=== PATIENT | female | born 1955 | race Caucasian/White ===

== ENCOUNTER → 2019-04-09 16:24 | Outpatient (BNVA) | payer MEDICARE, SELFPAY | PROVIDERS: Family Provider Nurse Practitioner; PCP Nurse Practitioner; Visit Provider Nurse Practitioner | DX: E11.65 Type 2 diabetes mellitus with hyperglycemia (principal); J44.9 Chronic obstructive pulmonary disease, unspecified; F41.8 Other specified anxiety disorders; E11.40 Type 2 diabetes mellitus with diabetic neuropathy, unspecified; K59.01 Slow transit constipation; I10 Essential (primary) hypertension; N39.46 Mixed incontinence | CPT/HCPCS: 80053; 80061; 81003; 83036 ==

== ENCOUNTER → 2019-08-16 14:28 | Outpatient (BNVA) | payer MEDICARE, SELFPAY | PROVIDERS: Family Provider Nurse Practitioner; PCP Nurse Practitioner; Visit Provider Nurse Practitioner | DX: J44.9 Chronic obstructive pulmonary disease, unspecified (principal); E11.65 Type 2 diabetes mellitus with hyperglycemia; E55.9 Vitamin D deficiency, unspecified; F41.8 Other specified anxiety disorders; M19.90 Unspecified osteoarthritis, unspecified site; K21.9 Gastro-esophageal reflux disease without esophagitis; E11.40 Type 2 diabetes mellitus with diabetic neuropathy, unspecified; I10 Essential (primary) hypertension; N39.46 Mixed incontinence | CPT/HCPCS: 80053; 80061; 81000; 82306; 82607; 83036; 83735; 84443; 85025 ==

== ENCOUNTER → 2019-12-13 13:43 | Outpatient (BNVA) | payer MEDICARE, SELFPAY | PROVIDERS: Family Provider Nurse Practitioner; PCP Nurse Practitioner; Visit Provider Nurse Practitioner | DX: Z11.59 Encounter for screening for other viral diseases (principal); G62.9 Polyneuropathy, unspecified; R11.2 Nausea with vomiting, unspecified | CPT/HCPCS: 87635 ==

== ENCOUNTER → 2019-12-26 09:24 | Outpatient (BNVA) | payer MEDICARE, SELFPAY | PROVIDERS: Family Provider Nurse Practitioner; PCP Nurse Practitioner; Visit Provider Orthopaedic Surgery | DX: M25.511 Pain in right shoulder (principal) | CPT/HCPCS: 73030 ==

== ENCOUNTER → 2020-01-11 08:30 | Outpatient (BNVA) | payer MEDICARE, SELFPAY | PROVIDERS: Family Provider Nurse Practitioner; PCP Nurse Practitioner; Visit Provider Nurse Practitioner | DX: E78.2 Mixed hyperlipidemia (principal); E55.9 Vitamin D deficiency, unspecified; E11.65 Type 2 diabetes mellitus with hyperglycemia; I10 Essential (primary) hypertension | CPT/HCPCS: 80053; 80061; 82306; 83036; 84443; 85025 ==

== ENCOUNTER 2020-07-21 09:21 | Outpatient (CLI) | payer MEDICARE, SELFPAY ==
--- NOTE | 2020-07-21 09:45 | CT_ITS ---
WS: [id number] CT HEAD NONCONTRAST HISTORY: R51.9 - Headache, unspecified TECHNIQUE: Contiguous axial imaging performed through the brain in 2.5 mm imaging. Bone and soft tiss ue windows. All CT scans at [facility] use at least one of these dose optimization techniq ues: automated exposure control; mA and/or kV adjustment per patient size (includes targeted exams wh ere dose is matched to clinical indication); or iterative reconstruction. DLP: 992.04 mGycm COMPARISON: 05/08/2013 No acute intracranial hemorrhage, midline shift or mass effect. There are mild chronic microvascular ischemic changes surround the ventricles. No atrophy or prior infarcts or herniation. Ventricles: Normal size with no hydrocephalus. Paranasal sinuses: As visualized are clear. Mastoid air cells: Well pneumatized. Calvarium and scalp: Hyperostosis frontalis interna. Focal stable scar within the posterior LEFT black etal scalp. CT/CT head wo con* [id number] IMPRESSION: Very mild chronic microvascular ischemic changes. No acute interval change sinc e 05/08/2013.
== END 2020-07-21 09:22 | disposition home or self-care (01) ==
PROVIDERS: PCP Nurse Practitioner; Visit Provider Nurse Practitioner
DX: R51.9 Headache, unspecified (principal); E11.65 Type 2 diabetes mellitus with hyperglycemia
CPT/HCPCS: 70450; 80053; 80061; 82043; 82607; 83036; 84443

== ENCOUNTER → 2021-01-01 10:08 | Outpatient (BNVA) | payer MEDICARE, SELFPAY | PROVIDERS: PCP Nurse Practitioner; Visit Provider Nurse Practitioner | DX: E55.9 Vitamin D deficiency, unspecified (principal); E11.65 Type 2 diabetes mellitus with hyperglycemia; I10 Essential (primary) hypertension; E78.2 Mixed hyperlipidemia; Z79.899 Other long term (current) drug therapy | CPT/HCPCS: 80053; 80061; 82306; 83036; 84443; 85025 ==

== ENCOUNTER → 2021-06-29 09:06 | Outpatient (BNVA) | payer MEDICARE, SELFPAY | PROVIDERS: PCP Nurse Practitioner; Visit Provider Nurse Practitioner | DX: E11.65 Type 2 diabetes mellitus with hyperglycemia (principal); R10.9 Unspecified abdominal pain | CPT/HCPCS: 80053; 83036; 85025 ==

== ENCOUNTER → 2021-12-28 11:32 | Outpatient (BNVA) | payer MEDICARE, SELFPAY | PROVIDERS: PCP Nurse Practitioner; Visit Provider Nurse Practitioner | DX: J43.8 Other emphysema (principal); J30.89 Other allergic rhinitis; F41.8 Other specified anxiety disorders; L29.9 Pruritus, unspecified; E11.22 Type 2 diabetes mellitus with diabetic chronic kidney disease; N18.2 Chronic kidney disease, stage 2 (mild); K21.9 Gastro-esophageal reflux disease without esophagitis; E78.2 Mixed hyperlipidemia; I10 Essential (primary) hypertension; N39.46 Mixed incontinence; E11.65 Type 2 diabetes mellitus with hyperglycemia; R41.3 Other amnesia; Z12.39 Encounter for other screening for malignant neoplasm of breast; R07.9 Chest pain, unspecified; Z23 Encounter for immunization; E55.9 Vitamin D deficiency, unspecified | CPT/HCPCS: 80053; 80061; 81000; 82306; 82607; 83036; 84443; 85025 ==

== ENCOUNTER 2022-01-18 | Outpatient (CLI) | payer MEDICARE, SELFPAY | END 2022-01-18 23:00 | disposition home or self-care (01) | LOC: RAD 01-22 06:33 | PROVIDERS: PCP Nurse Practitioner; Visit Provider Internal Medicine Cardiovascular Disease | DX: R07.9 Chest pain, unspecified (principal); I12.9 Hypertensive chronic kidney disease with stage 1 through stage 4 chronic kidney disease, or unspecified chronic kidney disease; N18.2 Chronic kidney disease, stage 2 (mild); E11.22 Type 2 diabetes mellitus with diabetic chronic kidney disease; F17.210 Nicotine dependence, cigarettes, uncomplicated; Z79.84 Long term (current) use of oral hypoglycemic drugs; E78.2 Mixed hyperlipidemia; G47.33 Obstructive sleep apnea (adult) (pediatric); J43.9 Emphysema, unspecified | CPT/HCPCS: 99204 ==

== ENCOUNTER 2022-02-04 13:44 | Outpatient (CLI) | payer MEDICARE, SELFPAY ==
--- NOTE | 2022-02-04 13:50 | MM_ITS ---
WS: [id number] VIEWS: MLO and CC views both breasts. 3D digital tomosynthesis is also included in this exam. Comparison made with prior exam of 10/03/2007, 11/22/2008. 10/21/2016.. Findings: There was no sign of mass, architectural distortion or suspicious calcification in either breast. Sta ble appearing small nodules in both breasts. Scattered fibroglandular densities. MM/[place] [id number] Impression: BI-RADS: 2-Benign FOLLOW-UP: 1 Year Follow-up This mammogram was also analyzed by the Computer Aided Detection System R2 Imag e Optomechanical Engineer.
== END 2022-02-04 13:45 | disposition home or self-care (01) ==
LOC: RAD 13:45
PROVIDERS: PCP Nurse Practitioner; Visit Provider Nurse Practitioner
DX: Z12.31 Encounter for screening mammogram for malignant neoplasm of breast (principal)
CPT/HCPCS: 77063; 77067

== ENCOUNTER 2022-03-25 06:39 | Outpatient (CLI) | payer MEDICARE, SELFPAY ==
--- NOTE | 2022-03-25 | ECG_ITS ---
[facility] Test Date: 2022-03-25 Pat Name: Kat Perez Department: Room: Gender: Female Technology Coordinator: Ingrid Menchaca : 1955 Requested By: Mary Romero Order Number: [id number] Kirill MD: Mary Romero M.D. Interpretive Statements NAME OF STUDY: LEXISCAN SESTAMIBI STRESS TEST INDICATION: Chest Pain PROCEDURE: At the baseline, the blood pressure was 125/70 mm Hg with a heart rate of 72 bpm. The electrocardiogram showed sinus rhythm, possible anteroseptal [place]. ??? The Lexiscan was infused over a period of 20 seconds. A total of 0.4 milligrams of Lexiscan was infused. The stress phase was continued for a total of 5 minutes. Heart rate at the end of the stress phase was 91 bpm with a blood pressure of 126/82 mm Hg. The EKG at the peak infusion revealed no significant ST-T wave changes. ??? Sestamibi was injected 20 seconds after the Lexiscan infusion. ??? Blood pressure at the end of the recovery phase was 122/94 mm Hg with a heart rate of 91 beats per minute. ??? CONCLUSION: 1. No significant EKG changes with the LexiScan infusion. 2. No LexiScan induced chest pain or cardiac arrhythmia. 3. Normal blood pressure and heart rate response. 4. Sestamibi/sestamibi perfusion scan pending; see separate report. Electronically Signed On 04-11-2022 9:31:10 HOTEL SECURITY OFFICER by Mary Romero M.D. [email or web address]
[2022-03-25 06:48] VITALS: BMI 46.7
--- NOTE | 2022-03-25 06:49 | NMCV_ITS ---
NM zuleika perf SPECT r/s* [id number] Kat Perez Age: 66 Gender: F : 1955 Exam Date: 03/25/2022 07:46 Ordering Phys: Mary Romero MD ([email or web address]) Technologist: GARFIELD Sousa Exam Location: [facility] Indications: CHEST PAIN STRESS TEST Please see separate stress test report in [facility] for full findings IMAGE PROTOCOL Rest/Stress 1 Lexiscan Day Radiopharmaceutical Dose (mCi) Administration Site Administered by Rest: Tc-99m 10.4 IV GARFIELD Pollack Sestamibi Stress:Tc-99m 32.6 IV GARFIELD Sousa Sestamiirving Rest: 25-Mar-2022 60 Discovery 630 Stress: 25-Mar-2022 30 Discovery 630 0.4mg Lexiscan. Supine position only as patient was unable to lay prone. SPECT RESULTS Technical Quality: Good Raw Data Analysis: Image Corrections: No attenuation or motion correction applied Summed Stress Score: 5 Summed Rest Score: 3 Summed Difference Score: 3 PERFUSION FINDINGS Small sized perfusion abnormality of mild severity of mid inferior, mid inferolateral and apical lateral sy on rest images with reversibility in mid to apical inferolateral wall on supine stress images FUNCTIONAL RESULTS (calculated via Gated SPECT) Stress Image LV EF (%): 86 Stress EDV (mL):102 TID: 1.02 Stress ESV (mL):14 FUNCTIONAL FINDINGS: The left ventricle is normal in size. Transient Ischemia Dilatation of 1. There is hyperdynamic left ventricular global systolic function, LVEF=86%. There is hyperdynamic left ventricular wall thickening. IMPRESSIONS 1.Small sized partially reversible perfusion abnormality of mild severity of mid inferolateral, apical anterior and apical lateral sy. 2. This may represent old myocardial infarction in circumflex artery territory with minimal alex-infarct ischemia or attenuation artifact in absence of prone imaging. 3. Overall left ventricular systolic function is normal without regional wall motion abnormalities, LVEF=86%. 4. EKG portion of the study will be reported separately. Mary Romero MD (Electronically Signed) Final Date: 27 March 2022 11:53 S
[2022-03-25] MEDS: regadenoson 0.4 Mg/5 ml Syringe IVP (08:24)
[2022-03-25 08:32] VITALS: BP 122/94; PULSE 92
== END 2022-03-25 06:40 | disposition home or self-care (01) ==
PROVIDERS: PCP Nurse Practitioner; Visit Provider Internal Medicine Cardiovascular Disease
DX: R07.9 Chest pain, unspecified (principal); R06.02 Shortness of breath
CPT/HCPCS: 36415; 78452; 93017; 96374; A9500; J2785

== ENCOUNTER → 2022-06-24 11:44 | Outpatient (BNVA) | payer MEDICARE, SELFPAY | PROVIDERS: PCP Nurse Practitioner; Visit Provider Nurse Practitioner | DX: J43.8 Other emphysema (principal); L29.9 Pruritus, unspecified; F41.8 Other specified anxiety disorders; E11.22 Type 2 diabetes mellitus with diabetic chronic kidney disease; N18.2 Chronic kidney disease, stage 2 (mild); R41.3 Other amnesia; E78.2 Mixed hyperlipidemia; K21.9 Gastro-esophageal reflux disease without esophagitis; I10 Essential (primary) hypertension; J30.89 Other allergic rhinitis; E11.65 Type 2 diabetes mellitus with hyperglycemia; E55.9 Vitamin D deficiency, unspecified | CPT/HCPCS: 80053; 80061; 81000; 82043; 82306; 83036 ==

== ENCOUNTER → 2022-07-19 12:53 | Outpatient (BNVA) | payer MEDICARE, SELFPAY | PROVIDERS: PCP Nurse Practitioner; Visit Provider Nurse Practitioner Family | DX: R07.9 Chest pain, unspecified (principal); I12.9 Hypertensive chronic kidney disease with stage 1 through stage 4 chronic kidney disease, or unspecified chronic kidney disease; E11.22 Type 2 diabetes mellitus with diabetic chronic kidney disease; F17.210 Nicotine dependence, cigarettes, uncomplicated; N18.2 Chronic kidney disease, stage 2 (mild) | CPT/HCPCS: 99214 ==

== ENCOUNTER → 2022-12-28 09:32 | Outpatient (BNVA) | payer MEDICARE, SELFPAY | PROVIDERS: PCP Nurse Practitioner; Visit Provider Nurse Practitioner | DX: E11.22 Type 2 diabetes mellitus with diabetic chronic kidney disease (principal); N18.2 Chronic kidney disease, stage 2 (mild); E11.65 Type 2 diabetes mellitus with hyperglycemia | CPT/HCPCS: 80053; 80061; 81000; 83036 ==

== ENCOUNTER → 2023-02-08 11:05 | Outpatient (BNVA) | payer MEDICARE, SELFPAY | PROVIDERS: PCP Nurse Practitioner; Visit Provider Internal Medicine Cardiovascular Disease | DX: R07.9 Chest pain, unspecified (principal); I12.9 Hypertensive chronic kidney disease with stage 1 through stage 4 chronic kidney disease, or unspecified chronic kidney disease; E11.22 Type 2 diabetes mellitus with diabetic chronic kidney disease; E11.65 Type 2 diabetes mellitus with hyperglycemia; N18.2 Chronic kidney disease, stage 2 (mild); Z79.84 Long term (current) use of oral hypoglycemic drugs; E78.2 Mixed hyperlipidemia; G47.33 Obstructive sleep apnea (adult) (pediatric); Z99.89 Dependence on other enabling machines and devices; J43.8 Other emphysema; F17.210 Nicotine dependence, cigarettes, uncomplicated | CPT/HCPCS: 99214 ==

== ENCOUNTER → 2023-02-15 09:36 | Outpatient (BNVA) | payer MEDICARE, SELFPAY | PROVIDERS: PCP Nurse Practitioner; Referring Provider Nurse Practitioner; Visit Provider Psychiatry & Neurology Neurology | DX: G25.0 Essential tremor (principal) | CPT/HCPCS: 99203 ==

== ENCOUNTER 2023-02-20 17:23 | Emergency (ER) | payer MEDICARE, SELFPAY ==
[2023-02-20 17:28] VITALS: BP 94/51; PULSE 82; RESP 15; TEMP 36.8; O2SAT 94; BMI 46.1
--- NOTE | 2023-02-20 17:52 | ED_ITS ---
HPI - Seizure 2 General: Chief Complaint: Seizure Stated Complaint: SEIZURE Time Seen by Provider: 02/20/23 17:33 Source: patient Limitations: no limitations History of Present Illness: HPI Narrative: This patient came to the emergency department because of concerns about continuous seizures since yesterday evening. Is a history of seizure disorder and was recently started on lamotrigine by neurology. She states she is taken approximately 3 doses. She states that they are unpredictable and have no pattern. She states that they start with shaking in her upper arms she states that she is fatigued after having some any's episodes over the past day or so. She denies any fevers or chills trauma chest pain shortness of breath or other constitutional complaints. There is no history of loss of bowel or bladder control or injury or associated symptoms during these episodes. She has no history of street drug use, alcohol use etc. No recent trauma no recent illness. MD complaint: possible seizure Trauma: No Seizure History: No Associated symptoms: Deny chest pain, chills, confusion, fever(s) or syncope Review of Systems 2 Const: Denies: fever(s) or chills Eyes: Denies: change in vision ENMT: Denies: throat pain, odynophagia, nasal discharge or nasal congestion Card: Denies: chest pain, palpitations, irregular heart rhythm, syncope or pre-syncope Resp: Denies: dyspnea, productive cough or non-productive cough GI: Denies: abdominal pain, nausea, vomiting or diarrhea : Denies: flank pain or difficulty voiding Musc: Denies: neck pain, back pain, extremity pain or extremity swelling Skin/Breast: Denies: rash Neuro: Reports: seizure-like activity; Denies: headache(s), numbness in extremities, weakness in extremities, confusion, Slurred speech present or difficulty communicating thoughts Psych: Reports: anxiety [place]/Lymph: Denies: easy bruising or easy bleeding PFSH ED 2 PFSH: Medical History AKI on CPAP Environmental and seasonal allergies 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 Neuropathy Mixed hyperlipidemia Arthritis Anxiety with depression CPAP (continuous positive airway pressure) dependence COPD (chronic obstructive pulmonary disease) Gastric reflux Mixed stress and urge incontinence Controlled type 2 diabetes mellitus with hyperglycemia, without long-term current use of insulin Chronic constipation Benign hypertension Morbid obesity Surgical History S/P tonsillectomy History of partial surgical removal of colon 1997 Diverticulitis History of hip surgery total right History of hysterectomy 1997 without BSO History of knee replacement total Bilateral History of tubal ligation Family History Father Cancer lung and brain Heart disease Myocardial infarction All fathers side Mother Diabetes Hypertension Stroke Cancer Kidney/Lung CA Social History Smoking and tobacco/nicotine status: current every day tobacco/nicotine user cigarettes Packs smoked per day: 1 Years cigarettes smoked: 32 Second hand smoke exposure: No Alcohol intake: unknown Substance/Drug Use: never Adopted: No Caregiver/support person: No Lives independently: Yes Household members: spouse Marital status: service: No Current occupational status: unemployed and disabled Pets and animals: Yes Do you think of yourself as: Straight/Heterosexual Current gender identity: Female Physical Exam 2 Narrative: EXAM NARRATIVE: During intake evaluation the patient made good eye contact and answers questions in a goal-directed and fluent fashion. She would intermittently have epic episodes where it was observed that she would have shaking of both upper extremities in a rhythmic fashion. This seemed to vary in intensity and seemed to completely dissipate when she was engaged in active conversation. Const: COMMON NORMALS: no acute distress and patient oriented x3 GENERAL APPEARANCE: cooperative and comfortable NUTRITIONAL APPEARANCE: obese O RIENTATION/CONSCIOUSNESS: Yes awake, Yes oriented to person and Yes oriented to place HENMT: COMMON NORMALS: normocephalic, atraumatic, Normal nasal mucous membranes and turbinates present, moist oral mucous membranes and oropharynx normal (No evidence of intraoral injury, tongue biting etc.) HEAD & SCALP: n ormocephalic and atraumatic NOSE: Normal nasal mucous membranes and turbinates present Eye: COMMON NORMALS: Equal, round and reactive pupils present, EOMs intact bilaterally, conjunctivae normal and no scleral icterus CONJUNCTIVA: Yes conjunctivae normal PUPIL: Yes Equal, round and reactive pupils present Neck/C-Spine: COMMON NORMALS: full ROM, no lymphadenopathy, supple, no JVD and Thyroid normal THYROID: Thyroid normal Chest: COMMONS NORMALS: normal inspection of the chest Resp: COMMON NORMALS: normal respiratory effort, No retractions, No use of accessory muscles and clear to auscultation bilaterally AUSCULTATION: clear to auscultation bilaterally Cardio: COMMON NORMALS: no JVD, regular rate, regular rhythm, No murmurs present (Cardio) and Peripheral pulses 2+ throughout RATE: regular rate R HYTHM: regular rhythm PERIPHERAL PULSES: Peripheral pulses 2+ throughout GI: COMMON NORMALS: Normal to inspection, nondistended, normoactive bowel sounds present and Soft to palpation PALPATION: Yes Soft to palpation : COMMON NORMALS: Yes no CVA tenderness BLADDER/KIDNEY EXAM: Yes no CVA tenderness Back/Pelvis: COMMON NORMALS: no CVA tenderness, thoracic and lumbar spine normal to inspection, no thoracic nor lumbar tenderness and thoraco-lumbar ROM normal Extremity: COMMON NORMALS: normal to inspection, full ROM, capillary refill normal, no calf tenderness and no pedal edema Neuro: COMMON NORMALS: patient oriented x3, moves all extremities, no focal motor deficits and no sensory deficits noted SENSORIUM/ORIENTATION: Yes oriented to person and Yes oriented to place CRANIAL NERVES: Yes CN normal except as noted COORDINATION/BALANCE: aawvyt-hc-fodx test normal and uofi-ka-hvow test normal COORDINATION: zpdodp-to-nktj test normal and iutx-fv-lqau test normal Psych: COMMON NORMALS: mental status grossly normal OTHER: During the interview the patient had an appropriate affect and seemed to have indifference to her episodes of shaking. Skin: COMMON NORMALS: no rashes or lesions noted, no wounds and turgor normal GENERAL SKIN EXAM: no rashes or lesions noted and turgor normal Course 2 Vital Signs: Vital signs: Vital Signs Temperature 98.3 F 02/20/23 17:28 Pulse Rate 82 02/20/23 17:28 Respiratory Rate 15 02/20/23 17:28 Blood Pressure 94/51 02/20/23 17:28 Pulse Oximetry 94 02/20/23 17:28 MDM - Seizure MDM Narrative Medical decision making narrative: This patient was numerous chronic comorbid medical problems presented to the emergency department because she had increasing frequency of her episodes of upper extremity shaking over the past day or so. She is unaware of any inciting event. She is recently been evaluated by neurology and carries a diagnosis of benign essential tremor and has been started on lamotrigine to help control her symptoms. She did not give a history that suggested that anxiety provoked her symptoms however she is had multiple injuries in her charts regarding anxiety symptoms. She has not just taken approximately 3 doses of her lamotrigine since being started on that medication. There is no other history of stimulants, self-injury, generalized tonic-clonic activity with loss of bowel or bladder continence, loss of conscious etc. Her clinical exam revealed what appeared to be intermittent and somewhat controllable rhythmic shaking of her upper extremities not continuous and seem to fluctuate depending upon her engagement. There is no involvement of her lower extremities. Her mentation and affect were normal and in fact she displayed rather indifference to her shaking. No other focal findings on her clinical or neurologic examination. Screening laboratories were obtained to ensure there was no electrolyte abnormalities or other potential etiologies within the realm of simple screening laboratories. She was given a single dose of Ativan and reevaluate after period of time. Her symptoms seem to be well-controlled and certainly at this time there is no evidence that this current condition portends a serious condition. It suggest possible psychogenic nonepileptic seizures but certainly could be anxiety provoked tremor as well. She does not have any evidence that suggested an ongoing emergency medical condition and it was discussed with both she and her family that she should continue the course with neurology and continue her medication buildup of her lamotrigine levels. All questions were answered and return precautions were discussed. Lab Data Attestation: I reviewed the patient's lab results. 02/20/23 17:59 02/20/23 17:59 Labs: Laboratory Results WBC 11.46 10^3/uL (3.29-11.43) H 02/20/23 17:59 RBC 4.32 10^6/uL (3.85-5.65) 02/20/23 17:59 Hgb 12.10 g/dL (11.27-16.99) 02/20/23 17:59 Hct 40.0 % (36-47) 02/20/23 17:59 MCV 92.6 fl (85-98) 02/20/23 17:59 MCH 28.0 pg (27-33) 02/20/23 17:59 MCHC 30.3 g/dL (30-55) 02/20/23 17:59 RDW 14.8 % (12.1-15.1) 02/20/23 17:59 Plt Count 206 10^3/cmm (157-399) 02/20/23 17:59 MPV 9.3 fL (7.4-10.4) 02/20/23 17:59 Neut % (Auto) 65.9 % 02/20/23 17:59 Lymph % (Auto) 26.2 % 02/20/23 17:59 [place] % (Auto) 5.8 % 02/20/23 17:59 Eos % (Auto) 1.5 % 02/20/23 17:59 Baso % (Auto) 0.3 % 02/20/23 17:59 Neut # (Auto) 7.56 10^3/uL (1.8-7.7) 02/20/23 17:59 Lymph # (Auto) 3.0 10^3/uL (0.8-4.8) 02/20/23 17:59 [place] # (Auto) 0.7 10^3/uL (0.2-0.9) 02/20/23 17:59 Eos # (Auto) 0.2 10^3/uL (0.0-0.8) 02/20/23 17:59 Baso # (Auto) 0.0 10^3/uL (0.0-0.1) 02/20/23 17:59 Nucleated RBC % (auto) 0 % 02/20/23 17:59 Nucleated RBCs # 0.0 /100WBC 02/20/23 17:59 Sodium 141 mmol/L (136-145) 02/20/23 17:59 Potassium 3.9 mmol/L (3.5-5.1) 02/20/23 17:59 Chloride 105 mmol/L (98-107) 02/20/23 17:59 Carbon Dioxide 23 mmol/L (22-29) 02/20/23 17:59 Anion Gap 16.9 (5-19) 02/20/23 17:59 BUN 12 mg/dL (8-23) 02/20/23 17:59 Creatinine 0.9 mg/dL (0.5-0.9) 02/20/23 17:59 GFR Calculation 62.1 mL/min (90-130) L 02/20/23 17:59 Glucose 84 mg/dL (65-115) 02/20/23 17:59 Calculated Osmolality 291 mOsm/kg (285-295) 02/20/23 17:59 Calcium 9.2 mg/dL (8.5-10.5) 02/20/23 17:59 Magnesium 2.0 mg/dL (1.7-2.3) 02/20/23 17:59 No radiology studies performed this visit Discharge Plan Discharge Patient Disposition: Home Clinical Impression: Psychogenic nonepileptic seizure Condition: Stable Prescriptions: No Action calcium carbonate [Calcium 600] 600 mg calcium (1,500 mg) tablet 600 mg PO QDAY coconut oil 1,000 mg capsule PO lactulose 20 gram/30 mL solution 20 gm PO QID PRN (Reason: constipation) Qty: 3000 5RF garlic 1,000 mg capsule 1,000 mg PO DAILY promethazine 25 mg tablet 25 mg PO Q6H PRN (Reason: nausea and vomiting) Qty: 20 0RF nitroglycerin [Nitrostat] 0.4 mg tablet, sublingual 0.4 mg sublingual Q5M PRN (Reason: chest pain) Qty: 25 0RF Rx Instructions: do not exceed 3 doses per episode triamcinolone acetonide 0.1 % ointment 1 applic topical BID PRN Excedrin Migraine 250-250-65 mg tablet 1 tab PO Q6H PRN albuterol sulfate [ProAir HFA] 90 mcg/actuation HFA aerosol inhaler 2 puff INHALATION QID PRN (Reason: shortness of breath or wheezing) Qty: 18 5RF bupropion HCl 150 mg tablet sustained-release 12 hr 150 mg PO Q12H Qty: 60 5RF cetirizine [Zyrtec] 10 mg tablet 10 mg PO DAILY Qty: 30 5RF Farxiga 10 mg tablet 10 mg PO QAM Qty: 30 5RF donepezil [Aricept] 5 mg tablet 5 mg PO DAILY Qty: 30 5RF famotidine 40 mg tablet 40 mg PO BID Qty: 60 5RF fenofibrate nanocrystallized [Tricor] 145 mg tablet 145 mg PO DAILY Qty: 30 5RF fluoxetine [Prozac] 20 mg capsule 20 mg PO DAILY Qty: 30 5RF fluticasone propion-salmeterol [Advair Diskus] 250-50 mcg/dose blister with device 1 inh INHALATION BID Qty: 60 5RF losartan 25 mg tablet 25 mg PO DAILY Qty: 90 1RF metoprolol succinate 50 mg tablet extended release 24 hr 50 mg PO QDAY Qty: 30 5RF montelukast [Singulair] 10 mg tablet 10 mg PO DAILY Qty: 30 5RF oxybutynin chloride 10 mg tablet extended release 24hr 10 mg PO QDAY Qty: 30 5RF lamotrigine 25 mg tablet 25 mg PO DAILY 14 Days Qty: 90 5RF Rx Instructions: take one in am one in pm for a week then 2 in am and 2 in pm thereafter tizanidine [Zanaflex] 4 mg tablet 4 mg PO BID PRN (Reason: muscle spasticity) Qty: 60 0RF acarbose 25 mg tablet 25 mg PO TID Qty: 90 2RF Rx Instructions: take before food aspirin 81 mg tablet,delayed release (DR/EC) See Rx Instructions .ROUTE .COMPLEX Qty: 90 3RF Dose Instruction: TAKE ONE TABLET BY MOUTH DAILY Rx Instructions: TAKE ONE TABLET BY MOUTH DAILY atorvastatin 20 mg tablet See Rx Instructions .ROUTE .COMPLEX Qty: 90 3RF Dose Instruction: TAKE ONE TABLET BY MOUTH DAILY Rx Instructions: TAKE ONE TABLET BY MOUTH DAILY Discharge Orders: Discharge ED (Routine); Ordered 02/20/23 Ordered By: Miguel Arriaza Referrals: Julius Lovelace, PLANNING TECHNICIAN-C [Primary Care Provider] - Discharge Diet: Usual diet Discharge Activity: Increase activity as tolerated Patient Instructions: Opioid Safety, Pain Management Activity Restrictions/Additional Instructions: Continue taking all your medications including your new antiseizure medication as prescribed. Make sure that you get at least 8 hours of sleep at night. Avoid excess stimulants such as caffeine, energy drinks, fvqf-kef-ddwvdgb cough and cold medicines etc. If you have any new or worsening symptoms you are welcome to return to the emergency department anytime for reevaluation. Coding Level of Care Code ED Turbogenerator Operator for Naomi Collins
[2023-02-20] MEDS: LORazepam 2 mg/mL INJ 1 mL 1 MG IVP (17:54)
[2023-02-20 18:11] LABS: Basophils % 0.3 %; Eosinophils # 0.2 10^3/uL (0.0-0.8); Eosinophils % 1.5 %; Lymphocytes % 26.2 %; Mean Corpuscular HGB Conc 30.3 g/dL (30-55); Mean Corpuscular Volume 92.6 fl (85-98); Mean Platelet Volume 9.3 fL (7.4-10.4); Monocytes # 0.7 10^3/uL (0.2-0.9); Monocytes % 5.8 %; Neutrophils # 7.56 10^3/uL (1.8-7.7); Neutrophils % 65.9 %; Nucleated Red Blood Cells % 0 %; Platelet Count 206 10^3/cmm (157-399); Red Blood Count 4.32 10^6/uL (3.85-5.65); Red Cell Distribution Width 14.8 % (12.1-15.1); White Blood Count 11.46 10^3/uL (3.29-11.43)
[2023-02-20 18:26] LABS: Anion Gap 16.9 (5-19); Blood Urea Nitrogen 12 mg/dL (8-23); Calcium 9.2 mg/dL (8.5-10.5); Carbon Dioxide 23 mmol/L (22-29); Chloride 105 mmol/L (98-107); Glomerular Filtration Rate 62.1 mL/min (90-130); Glucose 84 mg/dL (65-115); Osmolality Calculated 291 mOsm/kg (285-295); Potassium 3.9 mmol/L (3.5-5.1); Sodium 141 mmol/L (136-145)
[2023-02-20 19:55] VITALS: BP 111/49; PULSE 63; RESP 17; O2SAT 99
== END 2023-02-20 19:48 | disposition home or self-care (01) ==
PROVIDERS: Emergency Provider Emergency Medicine; PCP Nurse Practitioner
DX: G40.89 Other seizures (principal); Z79.82 Long term (current) use of aspirin; F17.210 Nicotine dependence, cigarettes, uncomplicated; I12.9 Hypertensive chronic kidney disease with stage 1 through stage 4 chronic kidney disease, or unspecified chronic kidney disease; E11.22 Type 2 diabetes mellitus with diabetic chronic kidney disease; N18.2 Chronic kidney disease, stage 2 (mild); E11.40 Type 2 diabetes mellitus with diabetic neuropathy, unspecified; E78.2 Mixed hyperlipidemia; J44.9 Chronic obstructive pulmonary disease, unspecified
CPT/HCPCS: 80048; 83735; 85025; 96374; 99284; J2060

== ENCOUNTER → 2023-06-01 14:36 | Outpatient (BNVA) | payer MEDICARE, SELFPAY | PROVIDERS: PCP Nurse Practitioner; Visit Provider Psychiatry & Neurology Neurology | DX: G25.0 Essential tremor (principal); R56.9 Unspecified convulsions; G25.3 Myoclonus; M54.2 Cervicalgia | CPT/HCPCS: 99212 ==

== ENCOUNTER 2023-06-27 09:07 | Outpatient (CLI) | payer MEDICARE, SELFPAY ==
--- NOTE | 2023-06-27 09:11 | CT_ITS ---
WS: [id number] CT HEAD NONCONTRAST HISTORY: R56.9 - Unspecified convulsions TECHNIQUE: Contiguous axial imaging performed through the brain in 2.5 mm imaging. Bone and soft tiss ue windows. Sagittal and coronal reformats reviewed. All CT scans at [facility] use at least one of these dose optimization techniques: automated exposure control; mA and/or kV adjustment per pa tient size (includes targeted exams where dose is matched to clinical indication); or iterative recon struction. DLP: 1150.38 mGy.cm COMPARISON: 07/21/2020 No acute intracranial hemorrhage, midline shift or mass effect. Mild atrophy and mild small vessel ischemic disease. Similar to the study of 07/21/2020. No mass effect or new infarct. Ventricles: Normal size with no hydrocephalus. No inferior displacement of the cerebellar tonsils. Paranasal sinuses: As visualized are clear. Mastoid air cells: Well pneumatized. Calvarium and scalp: Skull is intact with no soft tissue edema or swelling. IMPRESSION: 1. No acute intracranial hemorrhage or edema. 2. Mild atrophy and mild small vessel ischemic changes. Similar to 07/21/2020.
--- NOTE | 2023-06-27 09:11 | CT_ITS ---
WS: [id number] CT CERVICAL SPINE HISTORY: R56.9 - Unspecified convulsions TECHNIQUE: Contiguous 2.0 mm axial imaging performed through the entire cervical spine. Sagittal and coronal reformats also performed. All CT scans at [facility] use at least one of these dose o ptimization techniques: automated exposure control; mA and/or kV adjustment per patient size (include s targeted exams where dose is matched to clinical indication); or iterative reconstruction. DLP: 463.47 mGy.cm COMPARISON: 05/11/2017 Straightening and slight reversal of the normal lordosis centered at C5-6. Mild osteophytic ridging. Very slight anterolisthesis of C2. C4 anterolisthesis by 2.3 mm. Disc spaces are narrowed. Most signi ficant degenerative change at C5-6 and C6-7 with osteophytic ridging. Facet joints remain aligned. No fracture. Lateral masses of C1 and C2 are aligned. The odontoid is intact Hypertrophic degenerative changes surrounding the odontoid process. C2-C3: RIGHT facet arthritis. Mild central and bilateral foraminal stenosis predominantly due to oste ophytes. C3-C4: Osteophytic ridging and a central disc protrusion. Mild central and bilateral foraminal stenos is. C4-C5: Osteophytic ridging and marked facet joint arthritis, RIGHT greater than LEFT. Moderate centra l and LEFT foraminal stenosis. Severe RIGHT foraminal stenosis. C5-C6: Osteophytic ridging and facet joint arthritis. Moderate central and bilateral foraminal stenos is. C6-C7: Osteophytic ridging encroaching upon the ventral thecal sac. Moderate central and bilateral fo raminal stenosis. C7-T1: No significant stenosis. Paravertebral soft tissues are normal. IMPRESSION: 1. Mild progression of degenerative spondylitic changes throughout the cervical spine since 8. Central foraminal stenoses due to combination of vertebral body osteophytosis and facet arthritis. 2. C4-5: Moderate central LEFT foraminal stenosis with severe RIGHT foraminal stenosis. 3. C5-6 and C6-7: Moderate central and bilateral foraminal stenosis. 4. C2-3 and C3-4: Mild central and bilateral foraminal stenosis.
== END 2023-06-27 09:08 | disposition home or self-care (01) ==
LOC: RAD 09:08
PROVIDERS: PCP Nurse Practitioner; Visit Provider Psychiatry & Neurology Neurology
DX: R56.9 Unspecified convulsions (principal); G31.9 Degenerative disease of nervous system, unspecified; M48.02 Spinal stenosis, cervical region
CPT/HCPCS: 70450; 72125; 80053; 80061; 81000; 82607; 83036

== ENCOUNTER → 2023-06-30 09:44 | Outpatient (BNVA) | payer MEDICARE, SELFPAY | PROVIDERS: PCP Nurse Practitioner; Visit Provider Psychiatry & Neurology Neurology | DX: R56.9 Unspecified convulsions (principal); G25.3 Myoclonus; F44.5 Conversion disorder with seizures or convulsions | CPT/HCPCS: 95813 ==

== ENCOUNTER → 2023-07-12 15:13 | Outpatient (BNVA) | payer MEDICARE, SELFPAY | PROVIDERS: PCP Nurse Practitioner; Visit Provider Orthopaedic Surgery | DX: M54.9 Dorsalgia, unspecified (principal); M48.062 Spinal stenosis, lumbar region with neurogenic claudication | CPT/HCPCS: 36415; 72110; 80053; 85025; 99204 ==

== ENCOUNTER → 2023-07-14 10:38 | Outpatient (BNVA) | payer MEDICARE, SELFPAY | PROVIDERS: PCP Nurse Practitioner; Visit Provider Orthopaedic Surgery | DX: M54.9 Dorsalgia, unspecified (principal) | CPT/HCPCS: 81000 ==

== ENCOUNTER → 2023-07-19 09:09 | Outpatient (BNVA) | payer MEDICARE, SELFPAY | PROVIDERS: PCP Nurse Practitioner; Visit Provider Family Medicine | DX: Z01.810 Encounter for preprocedural cardiovascular examination (principal) | CPT/HCPCS: 93005 ==

== ENCOUNTER 2023-07-22 08:12 | Day surgery (SDC) | payer MEDICARE, SELFPAY ==
[2023-07-22] VITALS (11 sets, daily range): BP systolic 103–159; BP diastolic 58–86; PULSE 59–73; RESP 13–25; TEMP 36.1–36.5; O2SAT 92–100; BMI 45.8
[2023-07-22] MEDS: sodium chloride 0.9% 1,000 ML 30 ML IV (08:58)
--- NOTE | 2023-07-22 09:47 | ANES.PREANE2 ---
Pre-Anesthetic Assessment Height/Weight: Height 1.63 m Weight 121.109 kg Temp Pulse Resp BP Pulse Ox O2 Del Method 97.0 F L 59 L 20 H 159/86 93 Room Air 07/22/23 08:29 07/22/23 08:29 07/22/23 08:29 07/22/23 08:29 07/22/23 08:29 07/22/23 08:29 Preop Diagnosis: Nonworking neurostimulator Operation Date: 07/22/23 08:30 Proposed Procedures p Spinal Cord Battery/Stimulator Removal of Stimulator Paddle and Generator(Not Applicable) - Jamel Inman DO Last intake: Intake Last Liquid Date 07/21/23 Last Liquid Time 23:50 Last Solid Date 07/21/23 Last Solid Time 21:30 Social Tobacco and No alcohol Exam alert, oriented x 3, clear to auscultation bilaterally and regular rate & rhythm Airway Submandibular: within normal limits Cervical ROM: within normal limits Mallampati: Class I Pulmonary Chronic Obstructive Pulmonary Disease and Sleep Apnea CV/HEM Hypertension GI Gastroesophageal Reflux Disease Musc/el Lower Back Pain and Osteoarthritis/DJD Anesthetic Plan ASA status: 3 Anesthesia: General Medications/Allergies Home Medications Medication Instructions Recorded Confirmed Last Taken Type calcium carbonate (Calcium 600) 600 mg PO QDAY 04/09/19 07/21/23 07/20/23 16:00 History coconut oil 1,000 mg capsule 1,000 mg PO DAILY 04/09/19 07/21/23 07/20/23 16:00 History lactulose 20 gram/30 mL oral 20 gm (30 mL) PO QID PRN 04/09/19 07/21/23 Unknown Rx solution constipation #3,000 mL nitroglycerin 0.4 mg sublingual 0.4 mg sublingual Q5M PRN chest 12/28/21 07/21/23 Unknown Rx tablet (Nitrostat) pain #25 tabs ekdaxit-rmvoxjkchplrk-stsbyrqb 250 1 tab PO Q6H PRN MIGRAINES 01/18/22 07/21/23 Unknown History mg-250 mg-65 mg tablet (Excedrin Migraine) garlic 1,000 mg capsule 1,000 mg PO DAILY 01/18/22 07/21/23 07/20/23 16:00 History triamcinolone acetonide 0.1 % 1 applic topical BID PRN Rash 01/18/22 07/21/23 Unknown History topical ointment albuterol sulfate 90 mcg/actuation 2 puff inhalation QID PRN 06/02/23 07/21/23 Unknown Rx aerosol inhaler (ProAir HFA) shortness of breath or wheezing #18 grams bupropion HCl 150 mg tablet,12 hr 150 mg PO Q12H #60 tabs 06/02/23 07/21/23 07/21/23 10:00 Rx sustained-release cetirizine 10 mg tablet (Zyrtec) 10 mg PO DAILY #30 tabs 06/02/23 07/21/23 07/21/23 10:00 Rx dapagliflozin propanediol 10 mg 10 mg PO QAM #30 tabs 06/02/23 07/21/23 07/21/23 10:00 Rx tablet (Farxiga) donepezil 5 mg tablet (Aricept) 5 mg PO DAILY #30 tabs 06/02/23 07/21/23 07/21/23 10:00 Rx famotidine 40 mg tablet 40 mg PO BID #60 tabs 06/02/23 07/21/23 07/21/23 10:00 Rx fenofibrate nanocrystallized 145 145 mg PO DAILY #30 tabs 06/02/23 07/21/23 07/21/23 10:00 Rx mg tablet (Tricor) fluoxetine 20 mg capsule (Prozac) 20 mg PO BID #60 caps 06/02/23 07/21/23 07/21/23 10:00 Rx fluticasone 250 mcg-salmeterol 50 1 inh inhalation BID #60 ea 06/02/23 07/21/23 Unknown Rx mcg/dose blistr powdr for inhalation (Advair Diskus) losartan 25 mg tablet 25 mg PO DAILY #90 tabs 06/02/23 07/21/23 07/21/23 10:00 Rx metoprolol succinate 50 mg 50 mg PO QDAY #30 tabs 06/02/23 07/21/23 07/21/23 10:00 Rx tablet,extended release 24 hr montelukast 10 mg tablet 10 mg PO DAILY #30 tabs 06/02/23 07/21/23 07/21/23 10:00 Rx (Singulair) oxybutynin chloride 10 mg 10 mg PO QDAY #30 tabs 06/02/23 07/21/23 07/21/23 10:00 Rx tablet,extended release 24 hr BIPAP machine with supplies #1 ea 06/20/23 07/19/23 Unknown Rx Inogen Oxygen machine #1 ea 06/20/23 07/19/23 Unknown Rx aspirin 81 mg tablet,delayed 81 mg PO DAILY 07/21/23 07/21/23 07/17/23 History release atorvastatin 20 mg tablet 20 mg PO DAILY 07/21/23 07/21/23 07/21/23 10:00 History Allergies Allergy/AdvReac Type Severity Reaction Status Date / Time hydrocodone Allergy Unknown Unknown Verified 07/19/23 09:45 latex Allergy Unknown Unknown Verified 07/19/23 09:45 adhesive tape Allergy rash Verified 07/19/23 09:45 naproxen [From Anaprox] Allergy swelling Verified 07/19/23 09:45 in the face SOAP Allergy ADR-Itching Uncoded 07/21/23 11:55 Current Medications Generic Name Dose Route Start Last Admin Trade Name Freq PRN Reason Stop Dose Admin Sodium Chloride 1,000 mls @ 30 mls/hr 07/22/23 07:15 07/22/23 08:58 Sodium Chloride 0.9% IV 07/23/23 07:14 30 mls/hr .Q24H ROSHAN Administration PFSH Anesthesia Medical History AKI treated with BiPAP Oxygen 4liters bleed in bipap at night Environmental and seasonal allergies 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 Neuropathy Mixed hyperlipidemia Arthritis Anxiety with depression COPD (chronic obstructive pulmonary disease) Gastric reflux Mixed stress and urge incontinence Controlled type 2 diabetes mellitus with hyperglycemia, without long-term current use of insulin Chronic constipation Benign hypertension Morbid obesity Surgical History S/P tonsillectomy History of partial surgical removal of colon 1997 Diverticulitis History of hip surgery total right History of hysterectomy 1997 without BSO History of knee replacement total Bilateral History of tubal ligation Family History Father Cancer lung and brain Heart disease Myocardial infarction All fathers side Mother Diabetes Hypertension Stroke Cancer Kidney/Lung CA Social History (Reviewed 06/30/23 @ 09:57 by Gunjan Michel Smoking and tobacco/nicotine status: current every day tobacco/nicotine user cigarettes Packs smoked per day: 1 Years cigarettes smoked: 32 Second hand smoke exposure: No Alcohol intake: unknown Substance/Drug Use: never Adopted: No Caregiver/support person: No Lives independently: Yes Household members: spouse Marital status: service: No Current occupational status: unemployed and disabled Pets and animals: Yes Do you think of yourself as: Straight/Heterosexual Current gender identity: Female Data Anesthesia Cardiac Studies: Sestamibi Stress Test (Cardiology) 03/25/22
[2023-07-22] MEDS: ceFAZolin 2,000 MG in sodium chloride 0.9% (plus) 50 ML 100 MG IV (10:02)
--- NOTE | 2023-07-22 10:12 | W.PM.OPSFHP ---
Same Day Surgery H&P Indication for Procedure/HPI DATE OF PROCEDURE: July 22, 2023 CHIEF COMPLAINT/INDICATIONFOR SURGICAL PROCEDURE: Nonworking stimulator PREOP DIAGNOSIS: Nonworking neurostimulator PLANNED PROCEDURE: Operation Date: 07/22/23 08:30 Proposed Procedures p Spinal Cord Battery/Stimulator Removal of Stimulator Paddle and Generator(Not Applicable) - Jamel Inman DO Medications/Allergies* Home Medications Medication Instructions Recorded Confirmed Type calcium carbonate (Calcium 600) 600 mg PO QDAY 04/09/19 07/21/23 History coconut oil 1,000 mg capsule 1,000 mg PO DAILY 04/09/19 07/21/23 History jtmtxpc-vjbwcaexjviti-ojcnoizu 250 1 tab PO Q6H PRN MIGRAINES 01/18/22 07/21/23 History mg-250 mg-65 mg tablet (Excedrin Migraine) garlic 1,000 mg capsule 1,000 mg PO DAILY 01/18/22 07/21/23 History triamcinolone acetonide 0.1 % 1 applic topical BID PRN Rash 01/18/22 07/21/23 History topical ointment aspirin 81 mg tablet,delayed 81 mg PO DAILY 07/21/23 07/21/23 History release atorvastatin 20 mg tablet 20 mg PO DAILY 07/21/23 07/21/23 History Allergies/Adverse Reactions Allergy/AdvReac Type Severity Reaction Status Date / Time hydrocodone Allergy Unknown Unknown Verified 07/19/23 09:45 latex Allergy Unknown Unknown Verified 07/19/23 09:45 adhesive tape Allergy rash Verified 07/19/23 09:45 naproxen [From Anaprox] Allergy swelling Verified 07/19/23 09:45 in the face SOAP Allergy ADR-Itching Uncoded 07/21/23 11:55 Current Medications: Generic Name Dose Route Start Last Admin Trade Name Freq PRN Reason Stop Dose Admin Sodium Chloride 1,000 mls @ 30 mls/hr 07/22/23 07:15 07/22/23 08:58 Sodium Chloride 0.9% IV 07/23/23 07:14 30 mls/hr .Q24H ROSHAN Administration Pertinent History/Comorbid Conditions* Medical History (Updated 07/12/23 @ 17:12 by Jamel Inman DO) AKI treated with BiPAP Oxygen 4liters bleed in bipap at night Environmental and seasonal allergies 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 Neuropathy Mixed hyperlipidemia Arthritis Anxiety with depression COPD (chronic obstructive pulmonary disease) Gastric reflux Mixed stress and urge incontinence Controlled type 2 diabetes mellitus with hyperglycemia, without long-term current use of insulin Chronic constipation Benign hypertension Morbid obesity Surgical History (Updated 01/19/22 @ 13:32 by Mary Romero MD) S/P tonsillectomy History of partial surgical removal of colon 1997 Diverticulitis History of hip surgery total right History of hysterectomy 1997 without BSO History of knee replacement total Bilateral History of tubal ligation Family History (Updated 01/18/22 @ 11:10 by Jessica Mullins RN) Diabetes Mother Heart disease Father Myocardial infarction Father All fathers side Cancer Father lung and brain Mother Kidney/Lung CA Hypertension Mother Stroke Mother Social History Smoking and tobacco/nicotine status: current every day tobacco/nicotine user cigarettes Packs smoked per day: 1 Years cigarettes smoked: 32 Second hand smoke exposure: No Alcohol intake: unknown Substance/Drug Use: never Adopted: No Caregiver/support person: No Lives independently: Yes Household members: spouse Marital status: service: No Current occupational status: unemployed and disabled Pets and animals: Yes Do you think of yourself as: Straight/Heterosexual Current gender identity: Female Pertinent Exam Findings alert, oriented x 3 and procedure specific exam findings Recommendations Surgery/Procedure today Coding Level of Care Code Acute Code for Chg Fwd
[2023-07-22] MEDS: vancomycin 1,000 MG SDV 1000 MG XX (10:57)
[2023-07-22] MEDS: lidocaine-epi 1% 20 mL INJ 10 ML INJECTION (10:58)
--- NOTE | 2023-07-22 11:08 | SUR.OPER ---
1108 spinal cord stimulator generator removed entirely and inspected by dr barajas. disposed of in biohazard.
--- NOTE | 2023-07-22 11:30 | PM.OP ---
Operative Report Date of procedure: July 22, 2023 Pre-op diagnosis: Nonworking neurostimulator Post-op diagnosis: same Procedure done: 1. Removal of neurostimulator paddle 2. Removal of neurostimulator generator/battery Surgeon: Jamel Inman DO Estimated blood loss (mL): 50 Procedure: 1. Removal of neurostimulator paddle 2. Removal of neurostimulator generator/battery Patient brought the op suite after going anesthesia placed in prone position. All areas appear well-padded. Patient prepped draped also fashion. Skin incision is made over the battery using the previous incision. Battery is identified removed from the wound. Wires were freed up from the soft tissue and scar tissue. And held out of the wound. Next tension was brought to the neurostimulator incision. This was made using sharp dissection Bovie subperiosteal dissection was made above the lamina where the cement was placed. Retractors were placed. Rongeur was used by down the spinous process high-speed bur was used to perform partial laminectomy curved curettes and Kerrisons were used to remove the remaining lamina and scar tissue and ligament. The neurostimulator was then pulled out. Wires were freed up from the scar tissue. Wire was cut and stimulator was removed. And then the wires were pulled through to the battery and then the battery was removed. Wounds were irrigated Estrada powder was placed in each of the wounds. Wounds were closed in layered fashion with 0 Vicryl 2-0 Vicryl and Monocryl suture. Sterile dressings were applied patient transferred to the PACU in stable condition.
[2023-07-22] MEDS: oxyCODONE 5 mg IR Tab/Cap PO (12:22)
--- NOTE | 2023-07-22 15:57 | XR_ITS ---
WS: [id number] XR lumbar spine 2-3V* [id number] REASON FOR EXAM: MARTY PICS FINDINGS: Removal of dorsal column stimulator. No components of the appliance remain. XR/XR lumbar spine 2-3V* [id number] IMPRESSION: Complete removal of dorsal column stimulator.
== END 2023-07-22 12:51 | disposition home or self-care (01) ==
PROVIDERS: PCP Nurse Practitioner; Visit Provider Orthopaedic Surgery
PROC: (CPT 63662; principal; 2023-07-22 08:30)
DX: T85.193A Other mechanical complication of implanted electronic neurostimulator, generator, initial encounter (principal); G47.33 Obstructive sleep apnea (adult) (pediatric); E11.22 Type 2 diabetes mellitus with diabetic chronic kidney disease; I12.9 Hypertensive chronic kidney disease with stage 1 through stage 4 chronic kidney disease, or unspecified chronic kidney disease; N18.2 Chronic kidney disease, stage 2 (mild); E78.2 Mixed hyperlipidemia; M19.90 Unspecified osteoarthritis, unspecified site; J44.9 Chronic obstructive pulmonary disease, unspecified; E11.65 Type 2 diabetes mellitus with hyperglycemia; E66.01 Morbid (severe) obesity due to excess calories; Z68.42 Body mass index [BMI] 45.0-49.9, adult; F17.210 Nicotine dependence, cigarettes, uncomplicated; G47.30 Sleep apnea, unspecified; Z79.82 Long term (current) use of aspirin
CPT/HCPCS: 63662; 63688; 72100; 76000; J0690; J1100; J2371; J2405; J2704; J2710; J3010; J3370; J3490; J7030

== ENCOUNTER → 2023-08-04 14:57 | Outpatient (BNVA) | payer MEDICARE, SELFPAY | PROVIDERS: PCP Nurse Practitioner; Visit Provider Orthopaedic Surgery | DX: M54.9 Dorsalgia, unspecified (principal); Z48.89 Encounter for other specified surgical aftercare | CPT/HCPCS: 99024 ==

== ENCOUNTER 2023-09-05 15:46 | Outpatient (CLI) | payer MEDICARE, SELFPAY ==
--- NOTE | 2023-09-05 16:00 | MR_ITS ---
WS: [id number] MRI LUMBAR SPINE WITH CONTRAST TECHNIQUE: Sagittal T1, T2 and STIR imaging. Axial T1 and T2 imaging. Post gadolinium imaging was obt ained. CLINICAL INFORMATION: Back Pain COMPARISON: MRI 2019 FINDINGS: Mild lumbar curve. No acute compression. Slight anterolisthesis L4 on L5. No acute compression fractu res. Mild chronic anterior wedging in the lower thoracic spine. Anterior hypertrophic changes. Mild c entral canal stenosis in the cervical spine on the occupational therapy professor imaging. L1-L2: Mild facet arthropathy. Spinal canal and foramen are patent. L2-L3: Mild disc bulging examination with facet arthropathy and ligamentum flavum hypertrophy results in moderate narrowing of the thecal sac. Prominent epidural fat. Mild RIGHT foraminal narrowing. L3-L4: Mild disc bulging with a tiny disc herniation. Mild central canal stenosis. Moderate facet art hropathy. Mild bilateral foraminal narrowing. Prominent epidural fat. L4-L5: Grade 1 anterolisthesis. Moderate facet arthropathy. Mild central canal stenosis. Mild LEFT an d no significant RIGHT foraminal narrowing. L5-S1: Mild disc bulging. Moderate to advanced arthropathy. Spinal canal and foramen are patent. Visualized pelvic bony structures: Normal. Paravertebral soft tissues: Normal. Small bilateral renal cysts. MR/MR lumbar spine wo/w con [id number] IMPRESSION: 1. Mild lumbar curve. Slight anterolisthesis L4 on L5. No acute compression fr actures. 2. Progressed moderate narrowing of the thecal sac L2-3 due to disc bulging wi th combination of facet arthropathy and ligamentum flavum hypertrophy. Prominen t epidural fat. 3. Mild narrowing of the thecal sac L3-4 appears progressed compared to previo us. 4. Mild central canal stenosis L4-5 appears slightly progressed with advanced facet arthropathy. 5. Advanced arthropathy L4-L5 and L5-S1.
[2023-09-05] MEDS: gadobenate dimeglumine 20 mL vial IV (16:58)
== END 2023-09-05 15:47 | disposition home or self-care (01) ==
LOC: RAD 15:49
PROVIDERS: PCP Nurse Practitioner; Visit Provider Orthopaedic Surgery
DX: M47.896 Other spondylosis, lumbar region (principal); M43.16 Spondylolisthesis, lumbar region; M47.898 Other spondylosis, sacral and sacrococcygeal region
CPT/HCPCS: 72158; A9577

== ENCOUNTER → 2023-09-08 10:23 | Outpatient (BNVA) | payer MEDICARE, SELFPAY | PROVIDERS: PCP Nurse Practitioner; Visit Provider Orthopaedic Surgery | DX: Z09 Encounter for follow-up examination after completed treatment for conditions other than malignant neoplasm (principal) | CPT/HCPCS: 99024 ==

== ENCOUNTER → 2023-10-13 08:02 | Outpatient (BNVA) | payer MEDICARE, SELFPAY | PROVIDERS: PCP Nurse Practitioner; Visit Provider Orthopaedic Surgery | DX: M47.22 Other spondylosis with radiculopathy, cervical region (principal); M54.2 Cervicalgia | CPT/HCPCS: 99214 ==

== ENCOUNTER → 2023-11-17 10:20 | Outpatient (BNVA) | payer MEDICARE, SELFPAY | PROVIDERS: PCP Nurse Practitioner; Visit Provider Nurse Practitioner | DX: I10 Essential (primary) hypertension (principal); E11.9 Type 2 diabetes mellitus without complications | CPT/HCPCS: 80053; 80061; 82607; 83036; 85025 ==

== ENCOUNTER → 2023-11-29 12:49 | Outpatient (BNVA) | payer MEDICARE, SELFPAY | PROVIDERS: PCP Nurse Practitioner; Visit Provider Internal Medicine | DX: R06.02 Shortness of breath (principal); R07.9 Chest pain, unspecified; E11.22 Type 2 diabetes mellitus with diabetic chronic kidney disease; I11.0 Hypertensive heart disease with heart failure; N18.2 Chronic kidney disease, stage 2 (mild); E78.2 Mixed hyperlipidemia; G47.33 Obstructive sleep apnea (adult) (pediatric); Z99.89 Dependence on other enabling machines and devices; J43.8 Other emphysema | CPT/HCPCS: 99214 ==

== ENCOUNTER 2023-12-02 11:15 | Outpatient (CLI) | payer MEDICARE, SELFPAY ==
--- NOTE | 2023-12-02 11:41 | MR_ITS ---
WS: [id number] MRI CERVICAL SPINE NONCONTRAST HISTORY: neck pain COMPARISON: 10/18/2016 Technique: Multiplanar, multisequence noncontrast imaging of the cervical spine. Mild progression of degenerative curvature. Slight reversal the normal cervical lordosis now centered at C5. C4 anterolisthesis by 2 mm. Mild progression of degenerative disc space narrowing and desicca tion. No acute fractures or marrow edema. Signal within the cervical cord is normal. Visualized posterior fossa is unremarkable. Craniocervical junction, C1 and C2 relationship, odontoid process and soft tissues are normal. C2-C3: Small central disc protrusion with facet arthritis. No foraminal stenosis. C3-C4: Diffuse mild annular disc bulging with a central disc protrusion. Moderate size bilateral disc osteophyte complexes in the foramen causing moderate stenosis. C4-C5: Diffuse annular disc bulging with disc osteophyte complexes resulting in severe central and bi lateral foraminal stenosis. C5-C6: Diffuse osteophytic ridging with disc bulging and facet arthritis. Severe central and bilatera l foraminal stenosis. C6-C7: Diffuse annular disc bulging with osteophytic ridging and mild facet arthritis. Severe central and bilateral foraminal stenosis. C7-T1: Small foraminal osteophytes. No significant stenosis. Paravertebral soft tissues are negative. MR/MR cervical spin wo con* [id number] IMPRESSION: 1. Progression of the cervical spondylosis and multilevel areas of stenosis si nce 2017. 2. C4 anterolisthesis by 2 mm. 3. C4-5, C5-6 and C6-7: Severe central and bilateral foraminal stenosis due to disc and osteophyte disease. 4. C3-4: Small central disc protrusion. Moderate bilateral foraminal disc oste ophyte complexes resulting in moderate stenosis.
== END 2023-12-02 11:16 | disposition home or self-care (01) ==
LOC: RAD 11:15
PROVIDERS: PCP Nurse Practitioner; Visit Provider Orthopaedic Surgery
DX: M43.12 Spondylolisthesis, cervical region (principal); M25.78 Osteophyte, vertebrae; M99.61 Osseous and subluxation stenosis of intervertebral foramina of cervical region; M50.321 Other cervical disc degeneration at C4-C5 level; M50.322 Other cervical disc degeneration at C5-C6 level; M50.323 Other cervical disc degeneration at C6-C7 level; M47.892 Other spondylosis, cervical region
CPT/HCPCS: 72141

== ENCOUNTER → 2023-12-06 08:27 | Outpatient (BNVA) | payer MEDICARE, SELFPAY | PROVIDERS: PCP Nurse Practitioner; Visit Provider Orthopaedic Surgery | DX: M47.22 Other spondylosis with radiculopathy, cervical region (principal); Z09 Encounter for follow-up examination after completed treatment for conditions other than malignant neoplasm | CPT/HCPCS: 99214 ==

== ENCOUNTER 2023-12-27 10:24 | Outpatient (CLI) | payer MEDICARE, SELFPAY ==
--- NOTE | 2023-12-27 10:20 | MM_ITS ---
WS: [id number] BILATERAL 3D TOMOSYNTHESIS DIGITAL SCREENING MAMMOGRAPHY WITH CAD CLINICAL INFORMATION: Z12.31 - Encounter for screening mammogram for malignant ... HISTORY: Screening mammogram. No current complaints. COMPARISON: 2021 TECHNIQUE: Bilateral CC and MLO views. FINDINGS: Scattered fibroglandular densities bilaterally. No suspicious focal mass, asymmetry, calcifications, or architectural distortion. No evidence of malignancy. Few incidental punctate calcifications. MM/MM [facility] tomosynthesis [id number] IMPRESSION: DENSITY: There are scattered areas of fibroglandular density. BI-RADS: 2 - Benign. FOLLOW UP: 1 Year Follow-up Recommend return to annual screening mammography.
== END 2023-12-27 10:25 | disposition home or self-care (01) ==
LOC: MOBLMAM 10:28
PROVIDERS: PCP Nurse Practitioner; Visit Provider Nurse Practitioner
DX: Z12.31 Encounter for screening mammogram for malignant neoplasm of breast (principal); R92.323 Mammographic fibroglandular density, bilateral breasts
CPT/HCPCS: 77063; 77067

== ENCOUNTER 2024-01-04 11:58 | Outpatient (CLI) | payer MEDICARE, SELFPAY ==
--- NOTE | 2024-01-04 12:45 | USCV_ITS ---
Kat Perez Age: 68 Gender: F : 1955 Exam Date: 01/04/2024 12:46 Ordering Phys: Archie Valera M.D ([email or web address]) Technologist: GLENN Exam Location: [facility] – [place] Indication: CHEST PAIN BP: 137 / 77 HR: 55 Rhythm: Sinus Technical Quality: Adequate MEASUREMENTS (Male / Female) Normal Values 2D ECHO LV Diastolic Diameter PLAX 5.1 cm 4.2 - 5.9 / 3.9 - 5.3 cm IVS Diastolic Thickness 1.1 cm 0.6 - 1.0 / 0.6 - 0.9 cm IVS Systolic Thickness 1.8 cm LVPW Diastolic Thickness 1.8 cm 0.6 - 1.0 / 0.6 - 0.9 cm LVPW Systolic Thickness 2.5 cm LVOT Diameter 2.0 cm LV Ejection Fraction 2D Teich 55.7 % LV Ejection Fraction MOD 4C 62.0 % LV Ejection Fraction MOD 2C 62.0 % LV Ejection Fraction 2C AL 62.5 % LA Diameter 3.2 cm RA Systolic Volume 4C AL 20.7 ml RA Systolic Volume 4C MOD 19.7 ml LA Sys Volume AL 43.3 cm cubed LA Sys Volume Index AL 18.0 cm cubed/m squared Aorta at Sinotubular Diameter 2.4 cm IVC Diameter 1.5 cm M-MODE LA Ao Ratio MM 1.2 AV Cusp Separation MM 1.8 cm DOPPLER AV Peak Velocity 169.0 cm/s LVOT Peak Velocity 164.0 cm/s AV Area Cont Eq vti 2.8 cm squared AV Area Cont Eq pk 3.0 cm squared MV Peak Velocity 129.0 cm/s MV Area PHT 3.0 cm squared Mitral E to A Ratio 1.1 TR Peak Velocity 163.0 cm/s TR Peak Gradient 10.6 mmHg TR Mean Velocity 137.0 cm/s TR Mean Gradient 7.8 mmHg TR Velocity Time Integral 46.1 cm TV Peak E Velocity 60.0 cm/s Right Atrial Pressure 3.0 mmHg Pulmonary Artery Systolic Pressu 13.6 mmHg PV Peak Velocity 104.0 cm/s RV Ejection Time 0.4 s FINDINGS Left Ventricle Normal left ventricular size, systolic function and wall thickness, with no regional wall motion abnormalities. Left ventricular ejection fraction is estimated at 55 %. Grade I/IV diastolic dysfunction (abnormal relaxation filling pattern), normal to mildly elevated filling pressures. Right Ventricle The right ventricle is normal in size and function. Right Atrium The right atrium is normal in size. Left Atrium The left atrium is normal in size. Mitral Valve Structurally normal mitral valve without significant stenosis or prolapse. There is no mitral regurgitation. Aortic Valve Mild aortic valve calcification. No aortic valve stenosis. Trace aortic valve regurgitation. Tricuspid Valve Structurally normal tricuspid valve without significant stenosis or regurgitation. Pulmonary artery systolic pressure is normal. Pulmonic Valve Structurally normal pulmonic valve without significant stenosis. There is no pulmonic regurgitation. Pericardium Normal pericardium without effusion. Aorta Normal ascending aorta dimension. IVC The inferior vena cava appears normal. CONCLUSIONS Normal left ventricular size, systolic function and wall thickness, with no regional wall motion abnormalities. Left ventricular ejection fraction is estimated at 55 %. Grade I/IV diastolic dysfunction (abnormal relaxation filling pattern), normal to mildly elevated filling pressures. There is no pericardial effusion. No significant valve abnormalities. Pulmonary artery systolic pressure is within normal limits. Right atrial pressure is around 5 mm of mercury. Rufina Berkowitz MD (Electronically Signed) Final Date: 06 January 2024 21:01 S
== END 2024-01-04 11:59 | disposition home or self-care (01) ==
PROVIDERS: PCP Nurse Practitioner; Visit Provider Internal Medicine
DX: I50.30 Unspecified diastolic (congestive) heart failure (principal); R06.02 Shortness of breath
CPT/HCPCS: 93306

== ENCOUNTER → 2024-04-10 09:59 | Outpatient (BNVA) | payer MEDICARE, SELFPAY | PROVIDERS: PCP Nurse Practitioner; Referring Provider Orthopaedic Surgery; Visit Provider Anesthesiology Pain Medicine | DX: M48.062 Spinal stenosis, lumbar region with neurogenic claudication (principal); M51.16 Intervertebral disc disorders with radiculopathy, lumbar region | CPT/HCPCS: 99204 ==

== ENCOUNTER → 2024-05-01 12:46 | Outpatient (BNVA) | payer MEDICARE, SELFPAY | PROVIDERS: PCP Nurse Practitioner; Visit Provider Anesthesiology Pain Medicine | DX: M54.16 Radiculopathy, lumbar region (principal); M48.062 Spinal stenosis, lumbar region with neurogenic claudication; E11.9 Type 2 diabetes mellitus without complications; Z01.818 Encounter for other preprocedural examination | CPT/HCPCS: 36416; 64483; 64484; 82962; J1100; J3490 ==

== ENCOUNTER → 2024-05-14 15:34 | Outpatient (BNVA) | payer MEDICARE, SELFPAY | PROVIDERS: PCP Nurse Practitioner; Visit Provider Nurse Practitioner | DX: J43.8 Other emphysema (principal); F41.8 Other specified anxiety disorders; L29.9 Pruritus, unspecified; E11.22 Type 2 diabetes mellitus with diabetic chronic kidney disease; N18.2 Chronic kidney disease, stage 2 (mild); R41.3 Other amnesia; K21.9 Gastro-esophageal reflux disease without esophagitis; E78.2 Mixed hyperlipidemia; J30.89 Other allergic rhinitis; N39.46 Mixed incontinence; E11.65 Type 2 diabetes mellitus with hyperglycemia | CPT/HCPCS: 80053; 80061; 83036; 84443; 85025 ==

== ENCOUNTER → 2024-05-16 08:44 | Outpatient (BNVA) | payer MEDICARE, SELFPAY | PROVIDERS: PCP Nurse Practitioner; Visit Provider Nurse Practitioner Family | DX: M25.552 Pain in left hip (principal); M48.062 Spinal stenosis, lumbar region with neurogenic claudication; G89.29 Other chronic pain; M51.16 Intervertebral disc disorders with radiculopathy, lumbar region; F17.210 Nicotine dependence, cigarettes, uncomplicated | CPT/HCPCS: 73502; 99214 ==

== ENCOUNTER → 2024-05-23 09:29 | Outpatient (BNVA) | payer MEDICARE, SELFPAY | PROVIDERS: PCP Nurse Practitioner; Visit Provider Nurse Practitioner Family | DX: M70.72 Other bursitis of hip, left hip (principal); M16.12 Unilateral primary osteoarthritis, left hip; G89.29 Other chronic pain; M48.062 Spinal stenosis, lumbar region with neurogenic claudication; M51.16 Intervertebral disc disorders with radiculopathy, lumbar region; F17.210 Nicotine dependence, cigarettes, uncomplicated | CPT/HCPCS: 20610; 99214; J1010; J3490 ==

== ENCOUNTER → 2024-06-06 09:35 | Outpatient (BNVA) | payer MEDICARE, SELFPAY | PROVIDERS: PCP Nurse Practitioner; Visit Provider Nurse Practitioner Family | DX: M17.0 Bilateral primary osteoarthritis of knee (principal); M16.0 Bilateral primary osteoarthritis of hip; G89.29 Other chronic pain; M48.062 Spinal stenosis, lumbar region with neurogenic claudication; M51.16 Intervertebral disc disorders with radiculopathy, lumbar region; F17.210 Nicotine dependence, cigarettes, uncomplicated | CPT/HCPCS: 99213 ==

== ENCOUNTER → 2024-06-19 15:19 | Outpatient (BNVA) | payer MEDICARE, SELFPAY | PROVIDERS: PCP Nurse Practitioner; Visit Provider Anesthesiology Pain Medicine | DX: M70.62 Trochanteric bursitis, left hip (principal); M25.552 Pain in left hip; G89.29 Other chronic pain; F17.210 Nicotine dependence, cigarettes, uncomplicated | CPT/HCPCS: 20610; 36416; 77002; 82962; J1010; J3490; J9999 ==

== ENCOUNTER → 2024-07-11 11:03 | Outpatient (BNVA) | payer MEDICARE, SELFPAY | PROVIDERS: PCP Nurse Practitioner; Visit Provider Nurse Practitioner Family | DX: M48.062 Spinal stenosis, lumbar region with neurogenic claudication (principal); M25.552 Pain in left hip; G89.29 Other chronic pain; M51.16 Intervertebral disc disorders with radiculopathy, lumbar region | CPT/HCPCS: 99213 ==

== ENCOUNTER → 2024-08-08 11:11 | Outpatient (BNVA) | payer MEDICARE, SELFPAY | PROVIDERS: PCP Nurse Practitioner; Visit Provider Nurse Practitioner Family | DX: M48.062 Spinal stenosis, lumbar region with neurogenic claudication (principal); G89.29 Other chronic pain; M51.16 Intervertebral disc disorders with radiculopathy, lumbar region; M25.552 Pain in left hip | CPT/HCPCS: 99214 ==

== ENCOUNTER → 2024-08-28 15:16 | Outpatient (BNVA) | payer MEDICARE, SELFPAY | PROVIDERS: PCP Nurse Practitioner; Visit Provider Internal Medicine | DX: I12.9 Hypertensive chronic kidney disease with stage 1 through stage 4 chronic kidney disease, or unspecified chronic kidney disease (principal); E11.22 Type 2 diabetes mellitus with diabetic chronic kidney disease; N18.2 Chronic kidney disease, stage 2 (mild); E78.2 Mixed hyperlipidemia; R07.89 Other chest pain; J43.8 Other emphysema; G47.33 Obstructive sleep apnea (adult) (pediatric); Z99.89 Dependence on other enabling machines and devices; Z79.82 Long term (current) use of aspirin; R00.2 Palpitations | CPT/HCPCS: 99214 ==

== ENCOUNTER → 2024-10-29 14:26 | Outpatient (BNVA) | payer MEDICARE, SELFPAY | PROVIDERS: PCP Nurse Practitioner; Visit Provider Nurse Practitioner | DX: N18.2 Chronic kidney disease, stage 2 (mild) (principal); E11.65 Type 2 diabetes mellitus with hyperglycemia; E11.22 Type 2 diabetes mellitus with diabetic chronic kidney disease | CPT/HCPCS: 80053; 80061; 81000; 83036 ==

== ENCOUNTER 2024-12-18 12:46 | Outpatient (CLI) | payer MEDICARE, SELFPAY ==
--- NOTE | 2024-12-18 13:00 | CT_ITS ---
WS: [id number] LDCT LUNG CANCER SCREENING HISTORY: Z87.891 - Personal history of nicotine dependence TECHNIQUE: Axial imaging performed from the apices to 1 cm below the costophrenic angles. Coronal and sagittal reformats are submitted with axial MIP series. All CT scans at [facility] use at least one of these dose optimization techniques: automated exposure control; mA and/or kV adjustment per patient size (includes targeted exams where dose is matched to clinical indication); or iterative reconstruction. DLP: 160.40 mGy.cm DIvol: Mean CTDIvol: 4.30 (mGy) COMPARISON: None available. Diagnostic quality: Satisfactory Lungs: Lungs are mildly hyperinflated. There are numerous very tiny, 2 to 3 mm peripheral pulmonary nodules throughout both lungs. None of these nodules are greater than a few millimeters. There is no mass. No endobronchial lesions. Heart: Normal size heart with no pericardial effusion.. Other findings: Very minimal atherosclerosis aorta. Normal size aorta. Normal size pulmonary artery. Low-attenuation LEFT adrenal nodule measuring 1.8 x 1.2 cm, stable. 2.3 cm well-circumscribed mass superior pole LEFT kidney has slightly increased in size since 2007. Disc bases are narrowed. Calcification along the anterior longitudinal ligament. CT/CT lung screening [id number] IMPRESSION: LUNG-RADS: 2-Benign Appearance or Behavior FOLLOW UP: 12 Month: Continue annual screening with LDCT OTHER FINDINGS (S MODIFIER): None.
--- NOTE | 2024-12-18 13:30 | XR_ITS ---
WS: [id number] DEXA (DUAL ENERGY X-RAY ABSORPTIOMETRY) Bone mineral density was performed using a [employer] machine. HISTORY: Z78.0 - Asymptomatic menopausal state COMPARISON: None available. Lumbar spine BMD (L1-L4): 1.413 g/cm2 T score: 1.9 Z score: 2.5 Total hip BMD: Left: 0.995 (g/cm2). T score: -0.1 (no units) Z score: 0.6 (no units) Left forearm BMD: 0.904 g/cm2. T score: 0.3 Z score: 2.3 10 year probability of a major osteoporotic fracture is 8.1%. XR/XR DEXA axial skeleton* [id number] IMPRESSION: NORMAL BONE MINERAL DENSITY based upon the WHO classification for females.
== END 2024-12-18 12:47 | disposition home or self-care (01) ==
LOC: RAD 12:48
PROVIDERS: PCP Nurse Practitioner; Visit Provider Nurse Practitioner
DX: Z87.891 Personal history of nicotine dependence (principal); Z78.0 Asymptomatic menopausal state
CPT/HCPCS: 71271; 77080

== ENCOUNTER → 2025-01-22 14:45 | Outpatient (BNVA) | payer MEDICARE, SELFPAY | PROVIDERS: PCP Nurse Practitioner; Visit Provider Nurse Practitioner | DX: E11.65 Type 2 diabetes mellitus with hyperglycemia (principal) | CPT/HCPCS: 81000 ==